=== PATIENT | female | born 1990 | race Caucasian/White ===

== ENCOUNTER 2016-10-14 01:29 | Emergency (ER) | payer SELFPAY ==
[~2016-10-14] VITALS: Ht 154.9 cm; Wt 67.4 kg
[2016-10-14 01:37] VITALS: BP 128/87; PULSE 97; RESP 16; TEMP 99.8; O2SAT 98
[2016-10-14] MEDS ORDERED: MUCI600T PO (02:08)
[2016-10-14] MEDS ORDERED: OXYMETAZOLINE HCL 0.05% 15 ML NASAL SPRAY NASAL ONE (02:15)
[2016-10-14] MEDS ORDERED: IBUPROFEN 800 MG TAB PO ONE (02:15)
[2016-10-14] MEDS ORDERED: guaiFENesin/DEXTROMETHORPHAN 200 MG/20 MG/10 ML CUP PO ONE (02:15)
--- NOTE | 2016-10-14 02:15 | PD ---
HPI . Cold symptoms Chief Complaint: Abdominal Pain Time Seen by Provider: 02:02 Travel History International Travel<30 days: No Contact w/Intl Traveler<30days: No Traveled to known affect area: No History of Present Illness HPI Patient presents with cold symptoms for about 3 days now. She is complaining with nasal congestion, sore throat and cough. She states that she has developed posttussive emesis today. She also has abdominal pain. PFSH Past Medical History ?: Not LMP: 10/06/16 Social History Alcohol Use: Yes Tobacco Use: No Substance Use: No Allergies-Medications (Allergen,Severity, Reaction): Coded Allergies: Vicodin (Verified Allergy, Severe, throat swelling, 10/14/16) Reported Meds & Prescriptions Reported Meds & Active Scripts Active Reported Mucinex ER 12 HR (Guaifenesin) 600 Mg Tyler 600 Mg PO BID Review of Systems Except as stated in HPI: all other systems reviewed are Neg General / Constitutional: Positive: Fever, Chills HENT: Positive: Headaches, Sore Throat, Congestion Respiratory: Positive: Cough Gastrointestinal: Positive: Nausea, Vomiting, Abdominal Pain Physical Exam Narrative GENERAL: Healthy-appearing young woman who is in no distress. She does have nasal congestion. SKIN: Warm and dry. HEAD: Atraumatic. Normocephalic. EYES: Pupils equal and round. ENT: No nasal bleeding or discharge. Mucous membranes have edema and erythema. Oropharynx has no exudate or tonsillar enlargement. There is some erythema. NECK: Trachea midline. Neck is supple. She does have some cervical lymphadenopathy. CARDIOVASCULAR: Regular rate and rhythm. Heart sounds are normal. RESPIRATORY: No accessory muscle use. Lungs are clear with full air movement throughout. GASTROINTESTINAL: Abdomen soft, non-tender, nondistended. MUSCULOSKELETAL: No obvious deformities. No edema. NEUROLOGICAL: Awake and alert. No obvious cranial nerve deficits. Motor grossly within normal limits. Normal speech. PSYCHIATRIC: Appropriate mood and affect; insight and judgment normal. Data Data Last Documented VS Vital Signs Date Time Temp Pulse Resp B/P Pulse Ox O2 Delivery O2 Flow Rate FiO2 10/14/16 01:37 99.8 97 16 128/87 98 Orders Oxymetazoline 0.05% [place] (Afrin 0.0 (10/14/16 02:15) Guaifen-Dm 200-20 Mg/10 Ml Liq (Robituss (10/14/16 02:15) Group A Rapid Strep Screen (10/14/16 02:09) Influenzae A/B Antigen (10/14/16 02:09) Ibuprofen (Motrin) (10/14/16 02:15) Strep Culture (Group A) (10/14/16 02:20) MDM Medical Decision Making Medical Screen Exam Complete: Yes Emergency Medical Condition: Yes Differential Diagnosis Differential diagnosis includes but is not limited to influenza, upper respiratory infection, bronchitis, pneumonia Narrative Course Patient presents for evaluation and treatment of upper respiratory symptoms. She's been sick for 3 days. Her main complaint tonight seems to be posttussive emesis and abdominal pain. Ordered ibuprofen, Robitussin-DM and Afrin. Rapid flu and rapid strep are pending. Strep and flu screens are negative. Diagnosis Primary Impression: Viral syndrome Additional Instructions: I recommend the use of a Neti Pot. You may use a nasal spray such as Afrin for up to 3 days. You may take an [id number] antihistamine such as Zyrtec or Claritin as needed for runny secretions. You may take pseudoephedrine as needed for congestion. You will need to sign for this at the pharmacy. You may take a cough syrup such as Delsym as needed for cough. Disposition: 01 DISCHARGE HOME Condition: Stable Julieta Aguiar MD Oct 14, 2016 02:15
[2016-10-14 03:22] VITALS: BP 117/74
== END 2016-10-14 03:30 | disposition home or self-care (01) ==
LOC: PHED 01:29
DX: B34.9 Viral infection, unspecified (principal); F10.10 Alcohol abuse, uncomplicated
CPT/HCPCS: 87081; 87804; 87880; 99284

== ENCOUNTER 2017-03-13 07:08 | Emergency (ER) | payer MEDICAID ==
[~2017-03-13] VITALS: Ht 152.4 cm; Wt 72.2 kg
[~2017-03-13 07:08] MED LIST: MUCI600T PO
[2017-03-13 07:12] VITALS: BP 126/92; PULSE 79; RESP 16; TEMP 97.8; O2SAT 98
[2017-03-13 07:40] LABS: BLOOD, URINE LARGE (NEG); GLUCOSE,URINE NEG (NEG); KETONE, URINE NEG (NEG); NITRITE,URINE NEG (NEG)
--- NOTE | 2017-03-13 07:47 | PD ---
HPI . Bleeding in early Chief Complaint: [employer] Problem/Complaint Time Seen by Provider: 07:17 Travel History International Travel<30 days: No Contact w/Intl Traveler<30days: No Traveled to known affect area: No History of Present Illness HPI Patient presents stating that she has just found out that she was . She states that her last normal menstrual period was January 31. She states that it was completely normal. When she missed her cycle on about March 03, she did 3 home test all of which were positive. She reports some associated nausea and she denies any urinary tract symptoms such as dysuria, frequency or urgency. She states that she started having some tearing mild cramping and spotting last night. She subsequently presented here for evaluation. She has noted no modifying factors. Her symptoms are very mild. She does not know her blood type. She reports a previous miscarriage at about 8 weeks. She subsequently underwent a D&C. That was in [place]. [facility] Past Medical History Diminished Hearing: No Tetanus Vaccination: Unknown ?: LMP: 01/31/17 Dilation and Curettage (D&C): Yes Social History Alcohol Use: Yes Tobacco Use: No Substance Use: No Allergies-Medications (Allergen,Severity, Reaction): Coded Allergies: Vicodin (Verified Allergy, Severe, throat swelling, 03/13/17) Reported Meds & Prescriptions Reported Meds & Active Scripts Active No Active Prescriptions or Reported Medications Review of Systems Except as stated in HPI: all other systems reviewed are Neg Gastrointestinal: Positive: Nausea Genitourinary: Positive: Pelvic Pain, Vaginal Bleeding, No: Urgency, Frequency , Dysuria Physical Exam Narrative GENERAL: Awake and alert and in no acute distress. SKIN: Warm and dry. HEAD: Atraumatic. Normocephalic. EYES: Pupils equal and round. NECK: Trachea midline. CARDIOVASCULAR: Regular rate and rhythm. RESPIRATORY: No accessory muscle use. : Normal female external genitalia. Moderate old blood in the vaginal vault. Cervical os is closed. There is no cervical motion tenderness. There is no adnexal tenderness or mass. Uterus is small and nontender. MUSCULOSKELETAL: No obvious deformities. No edema. NEUROLOGICAL: Awake and alert. No obvious cranial nerve deficits. Motor grossly within normal limits. Normal speech. PSYCHIATRIC: Appropriate mood and affect; insight and judgment normal. Data Data Last Documented VS Vital Signs Date Time Temp Pulse Resp B/P Pulse Ox O2 Delivery O2 Flow Rate FiO2 03/13/17 07:12 97.8 79 16 126/92 98 Orders Gc And Chlamydia Pcr (03/13/17 07:17) Type And Screen (03/13/17 07:17) Wet Prep Profile (03/13/17 07:17) Urinalysis - C+S If Indicated (03/13/17 07:17) Ed Urine Pregnancytest Poc (03/13/17 07:17) Ed Poc Ultrasound (03/13/17 07:17) Beta Hcg (Quant/Titer) (03/13/17 07:36) Labs Laboratory Tests Test 03/13/17 03/13/17 03/13/17 07:15 07:28 07:30 Urine Collection Type CLEAN CATCH Urine Color YELLOW Urine Turbidity CLEAR Urine pH 6.0 Urine Specific [place] 1.032 Urine Protein 30 mg/dL Urine Glucose (UA) NEG mg/dL Urine Ketones NEG mg/dL Urine Occult Blood LARGE Urine Nitrite NEG Urine Bilirubin NEG Urine Leukocyte Esterase NEG Urine RBC 15-19 /hpf Urine WBC 0-2 /hpf Urine Squamous Epithelial 6-8 /hpf Cells Urine Bacteria OCC /hpf Microscopic Urinalysis Comment CULT NOT INDICATED Urine Collection Time 07:15 Human Chorionic Gonadotropin, 86 MIU/ML Quant Blood Type O POSITIVE Blood Bank Comment Clue Cells (Wet Prep) NONE SEEN Vaginal Trichomonas (Wet Prep) NONE SEEN Vaginal Yeast (Wet Prep) NONE SEEN MDM Medical Decision Making Medical Screen Exam Complete: Yes Emergency Medical Condition: Yes Differential Diagnosis Differential diagnosis of vaginal bleeding includes but is not limited to dysfunctional uterine bleeding, normal menstrual cycle, ectopic , spontaneous AB, PID. Narrative Course The patient presents for evaluation of vaginal bleeding in light of a positive home test. She is only about 5 weeks by dates. Her bedside test is faintly positive. I have ordered a quantitative hCG and a type and Rh. I have also done in the usual wet prep and GC/chlamydial DNA probe. I suspect that she is far too early in her to be able to see anything by ultrasound. Therefore, I have not ordered an ultrasound pending the results of her quantitative hCG. If her quantitative hCG is higher than expected, we will order an ultrasound. Quantitative hCG is 86. No further evaluation of is necessary at this time. Wet prep is negative. UA is negative with the exception of blood. Blood type is O+. Diagnosis Primary Impression: Bleeding in early Patient Instructions: General Instructions, Threatened Miscarriage (DC) Additional Instructions: Follow-up with a record label internship of your choice in a couple of weeks. In the meantime, avoid alcohol, tobacco, illicit drugs. Do not take medications such as aspirin, ibuprofen or naproxen. Start taking a multivitamin every day. Your blood test today was 86. Your blood type is O+. Scripts No Active Prescriptions or Reported Meds Disposition: 01 DISCHARGE HOME Condition: Stable Julieta Aguiar MD Mar 13, 2017 07:47
[2017-03-13 07:50] LABS: BACTERIA, URINE OCC /hpf; METHOD OF COLLECTION CLEAN CATCH; RBC, URINE 15-19 /hpf (0-3); URINE COLOR YELLOW (YELLW/STRAW); WBC, URINE 0-2 /hpf (0-5)
[2017-03-13 07:51] LABS: COMMENT (UR) CULT NOT INDICATED; CULTURE IF INDICATED CULT NOT INDICATED
[2017-03-13 07:59] LABS: BETA HCG QUANT 86 MIU/ML (0-5)
[2017-03-13 10:16] VITALS: BP 117/70
[2017-03-13 11:28] LABS: CHLAMYDIA PCR NOT DETECTED (NOT DETECT); NEISSERIA PCR NOT DETECTED (NOT DETECT)
== END 2017-03-13 10:21 | disposition home or self-care (01) ==
LOC: PHED 07:08
DX: O20.9 Hemorrhage in early pregnancy, unspecified (principal); Z3A.01 Less than 8 weeks gestation of pregnancy
CPT/HCPCS: 81001; 84702; 84703; 86850; 86900; 86901; 87210; 87491; 87591; 99283

== ENCOUNTER 2017-03-17 11:49 | Emergency (ER) | payer MEDICAID ==
[~2017-03-17] VITALS: Ht 152.4 cm; Wt 70.0 kg
[2017-03-17 11:51] VITALS: BP 139/88; PULSE 74; RESP 16; TEMP 98.2; O2SAT 98
[2017-03-17 12:50] LABS: BETA HCG QUANT 7 MIU/ML (0-5)
[2017-03-17] MEDS ORDERED: MOBI15TA PO (13:54)
[2017-03-17] MEDS ORDERED: ULTR50TA5 PO (13:54)
--- NOTE | 2017-03-17 13:54 | PD ---
HPI Chief Complaint: Related Problem Time Seen by Provider: 13:30 Travel History International Travel<30 days: No Contact w/Intl Traveler<30days: No Traveled to known affect area: No History of Present Illness HPI 26 years old female complains of pelvic pain and vaginal bleeding. Patient was seen at [facility] emergency room 4 days ago for pelvic pain and vaginal bleeding. Beta-hCG 86. Blood type O+. Patient was diagnosis with bleeding in early . Patient was advised to follow with gas station cashier. Patient has appointment with gas station cashier soon. Patient states that she still had persistent pelvic pain or vaginal bleeding since last visit. Patient denies any fever chills. Patient states that she has occasional nausea vomiting but no diarrhea. Patient denies any dysuria or frequency. Patient denies any back pain. Patient has history of recurrent pelvic pain from ovarian cyst. Patient was seen by physicians in the past. Patient took the medication the past for ovarian cyst. PFSH Past Medical History Diminished Hearing: No ?: Dilation and Curettage (D&C): Yes Social History Alcohol Use: Yes Tobacco Use: No Substance Use: No Allergies-Medications (Allergen,Severity, Reaction): Coded Allergies: Vicodin (Verified Allergy, Severe, throat swelling, 03/13/17) Reported Meds & Prescriptions Reported Meds & Active Scripts Active No Active Prescriptions or Reported Medications Review of Systems General / Constitutional: No: Fever Eyes: No: Visual changes HENT: No: Headaches Cardiovascular: No: Chest Pain or Discomfort Respiratory: No: Shortness of Breath Gastrointestinal: No: Abdominal Pain Genitourinary: Positive: Pelvic Pain, Vaginal Bleeding, No: Dysuria Musculoskeletal: No: Pain Skin: No Rash Neurologic: No: Weakness Psychiatric: No: Depression Endocrine: No: Polydipsia Hematologic/Lymphatic: No: Easy Bruising Physical Exam Narrative GENERAL: Well-nourished, well-developed patient. SKIN: Focused skin assessment warm/dry. HEAD: Normocephalic. EYES: No scleral icterus. No injection or drainage. NECK: Supple, trachea midline. No JVD or lymphadenopathy. CARDIOVASCULAR: Regular rate and rhythm without murmurs, gallops, or rubs. RESPIRATORY: Breath sounds equal bilaterally. No accessory muscle use. GASTROINTESTINAL: Abdomen soft, nondistended. Patient has moderate tenderness on palpation left low quadrant pelvic area. No rebound tenderness. No mass. MUSCULOSKELETAL: No cyanosis, or edema. BACK: Nontender without obvious deformity. No CVA tenderness. 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 Patient had nightly exam 4 days ago. Data Data Last Documented VS Vital Signs Date Time Temp Pulse Resp B/P Pulse Ox O2 Delivery O2 Flow Rate FiO2 03/17/17 11:51 98.2 74 16 139/88 98 Orders Beta Hcg (Quant/Titer) (03/17/17 11:53) Labs Laboratory Tests Test 03/17/17 12:10 Human Chorionic Gonadotropin, 7 MIU/ML Quant MDM Medical Decision Making Medical Screen Exam Complete: Yes Emergency Medical Condition: Yes Medical Record Reviewed: Yes Differential Diagnosis Differential diagnosis including threatened AB, incomplete AB, completed AB, ectopic , ovarian cyst, ovarian torsion. Narrative Course 26-year-old female with persistent vaginal bleeding and pelvic pain. Beta-hCG 4 days ago was 86. Beta hCG today 7. Toradol 30 mg IV. Diagnosis Primary Impression: Complete Additional Impression: Ovarian cyst Patient Instructions: General Instructions Additional Instructions: Take medication as directed for pain. Follow-up with gas station cashier. Return immediately if increasing abdominal pain pelvic pain, persistent bleeding, fever , severe back pain. Med/Other Pt SpecificInfo: Prescription(s) given Scripts Tramadol (Ultram)50 Mg Tab50 Mg PO Q6H PRN (PAIN) #30 TAB Ref 0 Prov:Van Apodaca MD 03/17/17 Meloxicam (Mobic)15 Mg Tab15 Mg PO DAILY #20 TAB Prov:Van Apodaca MD 03/17/17 Disposition: 01 DISCHARGE HOME Condition: Stable Van Apodaca MD Mar 17, 2017 13:54
[2017-03-17] MEDS ORDERED: KETOROLAC TROMETHAMINE 30 MG/ML (IVP) VIAL IV PUSH ONE (14:00)
== END 2017-03-17 15:03 | disposition home or self-care (01) ==
LOC: NEPD 11:49
DX: O03.9 Complete or unspecified spontaneous abortion without complication (principal); N83.209 Unspecified ovarian cyst, unspecified side
CPT/HCPCS: 84702; 96374; 99284; J1885